=== PATIENT | male | born 2000 | race Caucasian/White ===

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

== ENCOUNTER 2024-06-21 00:32 | Emergency (ER) | payer OTHER ==
[2024-06-21] MEDS ORDERED: HYDROcodone/APAP 5-325MG 1 EACH TAB ONE (01:34)
--- NOTE | 2024-07-05 13:45 | XR ---
Site ID [facility] Yadiel Cooley ID [id number] Order # Procedure ELBOW 3 V COMPLETE (R) EXAMINATION TYPE: XR elbow complete RT DATE OF EXAM: 06/22/2024 12:06 PM CLINICAL INDICATION: Pain COMPARISON: THIS EXAM WAS READ DURING PACS DOWNTIME, NO PRIORS AVAILABLE. TECHNIQUE: XR elbow complete RT; elbow was examined in AP, lateral, and oblique projections. FINDINGS/IMPRESSION: Osseous fragment anterior to the elbow with elbow joint effusion concerning for occult fracture has n o fractures definitively visualized. Further evaluation with CT recommended.
== END 2024-06-21 03:00 | disposition home or self-care (01) ==
LOC: EC 00:32
DX: M25.521 Pain in right elbow (principal)
CPT/HCPCS: 96360; 99283

== ENCOUNTER 2025-03-27 09:36 | Emergency (ER) | payer OTHER ==
--- NOTE | 2025-03-27 09:49 | ED ---
Upper Extremity HPI - General Chief Complaint: Extremity Injury, Upper Stated Complaint: L arm pain Time Seen by Provider: 03/27/25 09:43 Source: patient, RN notes reviewed Mode of arrival: ambulatory Limitations: no limitations - History of Present Illness Initial Comments: 24-year-old male presents emergency department chief complaint of fall, left elb ow pain. Patient states he fell today onto his elbow states when he fully extends his left elbow he has pain, feels like it pops and causes tingling in his arm. Patient denies any shoulder pain no head injury no loss conscious no wrist pain no other associated symptoms. - Related Data Home Medications Medication Instructions Recorded Confirmed Dexmethylphenidate HCl [Focalin Xr] 20 mg PO QAM 05/20/16 05/20/16 Previous Rx's Medication Instructions Recorded Ibuprofen [Motrin] 600 mg PO Q6HR PRN #24 tab 05/20/16 Ondansetron HCl [Zofran] 4 mg PO Q8HR PRN #12 tab 05/20/16 Ibuprofen [Motrin] 600 mg PO Q8HR PRN #20 tab 03/27/25 Allergies Allergy/AdvReac Type Severity Reaction Status Date / Time No Known Allergies Allergy Verified 03/27/25 09:42 Review of Systems ROS Statement: Those systems with pertinent positive or pertinent negative responses have been documented in the HPI. ROS Other: All systems not noted in ROS Statement are negative. Past Medical History Past Medical History: No Reported History History of Any Multi-Drug Resistant Organisms: None Reported Past Surgical History: No Surgical Hx Reported Past Psychological History: ADD/ADHD Smoking Status: Current every day smoker, Vaper Past Alcohol Use History: Occasional Past Drug Use History: Marijuana General Exam Limitations: no limitations General appearance: alert, in no apparent distress Head exam: Present: atraumatic, normocephalic, normal inspection Eye exam: Present: normal appearance, PERRL, EOMI. Absent: scleral icterus, co njunctival injection, periorbital swelling ENT exam: Present: normal exam, normal oropharynx, mucous membranes moist Neck exam: Present: normal inspection, full ROM. Absent: tenderness, meningismus, lymphadenopathy Respiratory exam: Present: normal lung sounds bilaterally. Absent: respiratory distress, wheezes, rales, rhonchi, stridor Cardiovascular Exam: Present: regular rate, normal rhythm, normal heart sounds. Absent: systolic murmur, diastolic murmur, rubs, gallop, clicks Extremities exam: Present: other (Left elbow mild swelling, tenderness to palpation neurovascular intact pain with full range of motion) Neurological exam: Present: alert Skin exam: Present: warm, dry, intact, normal color. Absent: rash Course Vital Signs 03/27/25 09:40 Temperature 97.9 F Pulse Rate 82 Respiratory 20 Rate Blood Pressure 154/93 O2 Sat by Pulse 99 Oximetry Medical Decision Making - Medical Decision Making Was pt. sent in by a medical professional or institution (YOANA Petersen, PATIENT RELATIONS MANAGER, urgent care, hospital, or [facility]...) When possible be specific @ -No Did you speak to anyone other than the patient for history (EMS, parent, family, police, friend...)? What history was obtained from this source @ -No Did you review nursing and triage notes (agree or disagree)? Why? @ -I reviewed and agree with nursing and triage notes Were old charts reviewed (outside hosp., previous admission, EMS record, old EKG, old radiological studies, urgent care reports/EKG's, [facility] records)? Report findings @ -No old charts were reviewed Differential Diagnosis (chest pain, altered mental status, abdominal pain women, abdominal pain men, vaginal bleeding, weakness, fever, dyspnea, syncope, headache, dizziness, GI bleed, back pain, seizure, CVA, palpatations, mental health, musculoskeletal)? @ -Fall, arm fracture, elbow sprain EKG interpreted by me (3pts min.). @None X-rays interpreted by me (1pt min.). @ -Left elbow no acute fracture or malalignment CT interpreted by me (1pt min.). @ -None done U/S interpreted by me (1pt. min.). @ -None done What testing was considered but not performed or refused? (CT, X-rays, U/S, labs)? Why? @ -None What meds were considered but not given or refused? Why? @ -None Did you discuss the management of the patient with other professionals (professionals i.e. YOANA Petersen, PATIENT RELATIONS MANAGER, lab, RT, psych nurse, social media content manager, refining still operator, teacher, conservation officer, piano case and bench assembler)? Give summary @ -No Was smoking cessation discussed for >3mins.? @ -No Was critical care preformed (if so, how long)? @ -No Were there social determinants of health that impacted care today? How? (Homelessness, low income, unemployed, alcoholism, drug addiction, transportation, low edu. Level, literacy, decrease access to med. care, intermediate, rehab)? @ -No Was there de-escalation of care discussed even if they declined (Discuss DNR or withdrawal of care, Hospice)? DNR status @ -No What co-morbidities impacted this encounter? (DM, HTN, Smoking, COPD, CAD, Cancer, CVA, ARF, Chemo, Hep., AIDS, mental health diagnosis, sleep apnea, morbid obesity)? @ -None Was patient admitted / discharged? Hospital course, mention meds given and route, prescriptions, significant lab abnormalities, going to OR and other pertinent info. @ -Discharged [Patient presented for left elbow pain x-rays are negative patient is no acute fracture patient discharged in stable condition follow-up with orthopedics as needed. Undiagnosed new problem with uncertain prognosis? @ -No Drug Therapy requiring intensive monitoring for toxicity (Heparin, Nitro, Insulin, Cardizem)? @ -No Were any procedures done? @ -No Diagnosis/symptom? @ -Left elbow sprain Acute, or Chronic, or Acute on Chronic? @ -Acute Uncomplicated (without systemic symptoms) or Complicated (systemic symptoms)? @ -Uncomplicated Side effects of treatment? @ -No Exacerbation, Progression, or Severe Exacerbation? @ -No Poses a threat to life or bodily function? How? (Chest pain, [place], [place], pneumonia, PE, COPD, DKA, ARF, appy, cholecystitis, CVA, Diverticulitis, Homicidal, Suicidal, threat to staff... and all critical care pts) @ -No Disposition Clinical Impression: Sprain of left elbow Disposition: HOME SELF-CARE Condition: Stable Instructions (If sedation given, give patient instructions): Elbow Sprain (ED) Additional Instructions: Please return to the Emergency Department if symptoms worsen or any other concer ns. Prescriptions: Ibuprofen [Motrin] 600 mg PO Q8HR PRN #20 tab PRN Reason: Pain Is patient prescribed a controlled substance at d/c from ED?: No Referrals: None,Stated [Primary Care Provider] - 1-2 days Time of Disposition: 10:15
--- NOTE | 2025-03-27 10:01 | XR ---
EXAMINATION TYPE: XR elbow complete LT DATE OF EXAM: 03/27/2025 COMPARISON: None CLINICAL INDICATION: Male, 24 years old with history of fall, pain, TECHNIQUE: Frontal, lateral and oblique images of the left elbow are obtained. FINDINGS: There is no acute fracture/dislocation evident in the elbow. No abnormal fat pad signs ar e seen. The overlying soft tissue appears unremarkable. IMPRESSION: There is no acute fracture or dislocation in the elbow. [facility], , 03/27/2025 9:59 AM
[2025-03-27 10:47] VITALS: BP 132/85; PULSE 75; RESP 16; TEMP 98.1
== END 2025-03-27 10:47 | disposition home or self-care (01) ==
LOC: EC 09:36
DX: S53.402A Unspecified sprain of left elbow, initial encounter (principal); F17.290 Nicotine dependence, other tobacco product, uncomplicated; W19.XXXA Unspecified fall, initial encounter
CPT/HCPCS: 99283